=== PATIENT | female | born 2005 | race Caucasian/White ===

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

== ENCOUNTER → 2025-01-02 15:33 | Outpatient (BNVA) | payer OTHER, SELFPAY | PROVIDERS: Visit Provider Physician Assistant Medical | DX: S39.012D Strain of muscle, fascia and tendon of lower back, subsequent encounter (principal); W51.XXXD Accidental striking against or bumped into by another person, subsequent encounter | CPT/HCPCS: 99213 ==

== ENCOUNTER → 2025-01-24 13:28 | Outpatient (BNVA) | payer OTHER, SELFPAY | PROVIDERS: Visit Provider Registered Nurse | DX: S39.012D Strain of muscle, fascia and tendon of lower back, subsequent encounter (principal); W51.XXXD Accidental striking against or bumped into by another person, subsequent encounter; Z02.79 Encounter for issue of other medical certificate | CPT/HCPCS: 99213 ==